=== PATIENT | female | born 1965 | race African-American/Black ===

== ENCOUNTER 2018-05-19 15:08 | Emergency (ER) | payer MEDICARE, MEDICAID ==
[~2018-05-19] VITALS: Ht 162.6 cm; Wt 71.0 kg
[~2018-05-19 15:08] MED LIST: HYDR-4135 PO; LISI40TA4 MT; MELO-106 MT; [UNRECOGNIZED DRUG - OTHER]
[2018-05-19] MEDS ORDERED: KETOROLAC 60MG/2ML VIAL IM STA (16:49)
[2018-05-19] MEDS ORDERED: ASPIRIN 81MG TABLET PO ONE (17:00)
[2018-05-19 18:01] LABS: BASOPHILS % 0.3 % (0.0-2.0); EOSINOPHILS % 1.7 % (0.0-5.0); HEMATOCRIT. 42.9 % (36.0-48.0); HEMOGLOBIN. 14.3 g/dL (12.0-16.0); MEAN CORPUSCULAR HEMOGLOBIN 27.9 pg (28.0-32.0); MEAN CORPUSCULAR VOLUME 83.6 fL (81.0-99.0); MEAN PLATELET VOLUME 8.5 fl (7.4-10.4); MONOCYTES % 4.4 % (2.0-8.0); NEUTROPHILS % 75.6 % (40.0-76.0); PLATELET 271 x1000/uL (130-400); RED BLOOD CELL COUNT 5.13 mill/uL (4.2-5.4); RED CELL DISTRIBUTION WIDTH 18.8 % (11.6-14.6)
[2018-05-19 18:08] LABS: CHLORIDE 106 mEq/L (98-107)
[2018-05-19 18:51] VITALS: BP 135/86
== END 2018-05-19 19:34 | disposition home or self-care (01) ==
LOC: ER 15:08 → CANBEDREQ 20:37
DX: R07.89 Other chest pain (principal); F12.10 Cannabis abuse, uncomplicated; I11.0 Hypertensive heart disease with heart failure; I50.9 Heart failure, unspecified; J45.909 Unspecified asthma, uncomplicated; H40.9 Unspecified glaucoma; Z88.6 Allergy status to analgesic agent; Z91.013 Allergy to seafood
CPT/HCPCS: 36415; 71045; 80053; 83880; 84484; 85025; 93005; 96372; 99284; J1885

== ENCOUNTER 2020-06-20 20:36 | Inpatient (IN) | payer MEDICARE, MEDICAID ==
[~2020-06-20] VITALS: Ht 162.6 cm; Wt 121.4 kg
[~2020-06-20 20:36] MED LIST changes: +LISI40TA13 MT; -LISI40TA4 MT
[2020-06-20] MEDS ORDERED: SODIUM CHLORIDE 0.9% 1,000 ML IV ONE (21:15)
[2020-06-20] MEDS ORDERED: MORPHINE SULFATE 4 MG/ML CPJ (NOT FOR IM USE) IV ONE (21:30)
[2020-06-20 21:44] LABS: BASOPHILS % 0.8 % (0.0-2.0); EOSINOPHILS % 0.8 % (0.0-5.0); HEMATOCRIT. 44.8 % (36.0-48.0); HEMOGLOBIN. 15.2 g/dL (12.0-16.0); LYMPHOCYTES % 21.2 % (20.0-50.0); MEAN CORPUSCULAR HEMOGLOBIN 29.5 pg (28.0-32.0); MEAN CORPUSCULAR VOLUME 87.1 fL (81.0-99.0); MEAN PLATELET VOLUME 9.3 fl (7.4-10.4); MONOCYTES % 5.4 % (2.0-8.0); NEUTROPHILS % 71.8 % (40.0-76.0); PLATELET 227 x1000/uL (130-400); RED BLOOD CELL COUNT 5.15 mill/uL (4.2-5.4); RED CELL DISTRIBUTION WIDTH 14.5 % (11.6-14.6)
[2020-06-20 21:45] LABS: CLARITY URINE CLEAR (CLEAR); COLOR URINE YELLOW (YELLOW); KETONES URINE NEGATIVE (NEGATIVE); LEUKOCYTE ESTERASE URINE TRACE (NEGATIVE); NITRITE URINE NEGATIVE (NEGATIVE); OCCULT BLOOD URINE NEGATIVE (NEGATIVE); PH URINE 7.5 (4.5-8.0); PROTEIN URINE NEGATIVE (NEGATIVE); SPECIFIC GRAVITY URINE 1.015 (1.005-1.030); UROBILINOGEN URINE 0.2 E.U./dL (0.2-1.0)
[2020-06-20 21:49] LABS: CHLORIDE 96 mEq/L (98-107)
[2020-06-20] MEDS ORDERED: POTASSIUM CHLORIDE 20MEQ TABLET SR PO ONE (22:45)
[2020-06-20] MEDS ORDERED: LORAZEPAM 2MG/ML CPJ IV ONE (22:45)
[2020-06-20] MEDS ORDERED: KCL 20MEQ/100ML PREMIX 100 ML IV ONE (22:45)
[2020-06-20] MEDS ORDERED: HYDRALAZINE 20MG/ML VIAL IV ONE (23:45)
[2020-06-21] MEDS ORDERED: HYDROCODONE/ACETAMINOPHEN 5/325MG TABLET PO PRN (03:00)
[2020-06-21] MEDS ORDERED: CLONIDINE 0.2MG TABLET PO PRN (03:00)
[2020-06-21] MEDS: ACETAMINOPHEN 325MG TABLET PO PRN ×3 (04:30→13:27)
[2020-06-21] MEDS ORDERED: MAGNESIUM/ALUMINUM HYDROXIDE/SIMETHICONE 30ML UDC PO PRN (08:15)
[2020-06-21] MEDS ORDERED: ONDANSETRON HCL 4MG/2ML INJ IV PRN (08:15)
[2020-06-21] MEDS ORDERED: ACETAMINOPHEN 325MG TABLET PO PRN (08:15)
[2020-06-21] MEDS ORDERED: DOCUSATE SODIUM 100MG CAPSULE PO PRN (08:15)
[2020-06-21] MEDS ORDERED: IPRATROPIUM/ALBUTEROL 0.5-3(2.5)MG/3ML NEB HHN PRN (08:15)
[2020-06-21] MEDS ORDERED: MORPHINE SULFATE 2 MG/ML CPJ (NOT FOR IM USE) IV PRN (08:15)
[2020-06-21] MEDS ORDERED: GUAIFENESIN 200MG/10ML SUGAR FREE UDC PO PRN (08:15)
[2020-06-21] MEDS ORDERED: HYDRALAZINE 20MG/ML VIAL IV PRN (08:15)
[2020-06-21 09:24] LABS: CHLORIDE 99 mEq/L (98-107)
[2020-06-21] MEDS: ENOXAPARIN 40MG/0.4ML SYR SUBCUT SCH (09:34)
[2020-06-21] MEDS ORDERED: POTASSIUM CHLORIDE INJ 40 MEQ in DEXT 5% WATER 250 ML IV NR (12:00)
[2020-06-21 13:00] LABS: T4 FREE 1.45 ng/dL (0.76-1.46)
[2020-06-21 13:30] LABS: CREATINE KINASE 214 IU/L (26-192)
[2020-06-21 13:31] LABS: CREATINE KINASE MB FRACTION 1.3 ng/mL (0.5-3.6)
[2020-06-21] MEDS: SODIUM CHLORIDE 0.9% INJ 3ML FLUSH IVF SCH ×2 (14:32→22:00)
[2020-06-21 14:55] VITALS: BP 137/77
[2020-06-21 16:00] VITALS: BP 168/75
[2020-06-21] MEDS: LORAZEPAM 2MG/ML CPJ IV PRN (18:40)
[2020-06-21] MEDS: DIPHENHYDRAMINE 50MG/ML VIAL IV PRN ×2 (18:40→23:49)
[2020-06-21 20:00] VITALS: BP 152/80
[2020-06-21] MEDS ORDERED: PNEUMOCOCCAL 23-VAL P-SAC VAC 0.5 ML IM ONE (22:00)
[2020-06-21] MEDS ORDERED: TC1U15 TP (23:44)
[2020-06-21] MEDS ORDERED: QUET200T MT (23:44)
[2020-06-21] MEDS ORDERED: BRIM.2 EACHEYE (23:44)
[2020-06-21] MEDS ORDERED: PRED5DRO22 EACHEYE (23:44)
[2020-06-22] VITALS: BP 144/69
[2020-06-22 00:48] LABS: CREATINE KINASE 204 IU/L (26-192)
[2020-06-22 04:00] VITALS: BP 159/66
[2020-06-22] MEDS ORDERED: *PATIENT'S OWN MEDICATION STORAGE XX SCH (04:15)
[2020-06-22] MEDS: SODIUM CHLORIDE 0.9% INJ 3ML FLUSH IVF SCH ×2 (06:12→16:57)
[2020-06-22 06:29] LABS: CHLORIDE 101 mEq/L (98-107)
[2020-06-22 06:36] LABS: BASOPHILS % 0.5 % (0.0-2.0); HEMATOCRIT. 41.7 % (36.0-48.0); HEMOGLOBIN. 14.4 g/dL (12.0-16.0); MEAN CORPUSCULAR HEMOGLOBIN 30.5 pg (28.0-32.0); MEAN CORPUSCULAR VOLUME 88.4 fL (81.0-99.0); MEAN PLATELET VOLUME 9.2 fl (7.4-10.4); MONOCYTES % 6.8 % (2.0-8.0); NEUTROPHILS % 66.7 % (40.0-76.0); PLATELET 222 x1000/uL (130-400); RED BLOOD CELL COUNT 4.72 mill/uL (4.2-5.4); RED CELL DISTRIBUTION WIDTH 14.4 % (11.6-14.6)
[2020-06-22 08:00] VITALS: BP 148/84
[2020-06-22] MEDS: ENOXAPARIN 40MG/0.4ML SYR SUBCUT SCH (08:36)
[2020-06-22] MEDS: LORAZEPAM 2MG/ML CPJ IV PRN ×2 (08:48→16:58)
[2020-06-22] MEDS ORDERED: HYDRALAZINE HCL 50MG TABLET PO SCH (10:00)
[2020-06-22] MEDS ORDERED: POTASSIUM CHLORIDE INJ 40 MEQ in DEXT 5% WATER 250 ML IV SCH (11:00)
[2020-06-22 12:00] VITALS: BP 155/75
[2020-06-22 15:59] LABS: HEPATITIS B SURFACE ANTIGEN NEGATIVE
[2020-06-22 16:00] VITALS: BP 147/68
[2020-06-22] MEDS ORDERED: PREDNISOLONE ACETATE 1% OPHTH DROPS 5ML EACHEYE SCH ×2 (16:00→17:30)
[2020-06-22 16:27] LABS: HEPATITIS A AB IGM NEGATIVE (NEGATIVE)
[2020-06-22 17:15] VITALS: BP 147/68
[2020-06-22] MEDS ORDERED: ENOXAPARIN 30MG/0.3ML SYR SUBCUT SCH (21:00)
== END 2020-06-22 18:16 | disposition home or self-care (01) | DRG 690 ==
LOC: ER 20:36 → 8WST 06-21 00:08 → ENRESERV 06-21 12:11
PROVIDERS: ADMIT Internal Medicine; ATTEND Internal Medicine
DX: N30.90 Cystitis, unspecified without hematuria (principal); Z68.42 Body mass index [BMI] 45.0-49.9, adult; E87.1 Hypo-osmolality and hyponatremia; E87.6 Hypokalemia; E86.0 Dehydration; D72.829 Elevated white blood cell count, unspecified; E66.9 Obesity, unspecified; J45.909 Unspecified asthma, uncomplicated; K76.0 Fatty (change of) liver, not elsewhere classified; Z20.822 Contact with and (suspected) exposure to COVID-19; N85.4 Malposition of uterus; R74.01 Elevation of levels of liver transaminase levels; E87.5 Hyperkalemia; I10 Essential (primary) hypertension; Z88.8 Allergy status to other drugs, medicaments and biological substances; Z91.013 Allergy to seafood; Z79.899 Other long term (current) drug therapy
CPT/HCPCS: 36415; 71045; 74176; 80048; 80053; 80061; 81003; 82550; 82553; 83036; 83735; 83880; 84439; 84443; 84484; 85025; 85379; 86705; 86709; 86803; 87340; 87426; 93005; 93306; 93970; 96374; 99285; J0360; J1200; J1650; J2060; J2270; J2405; J3480; J7030; J7060

== ENCOUNTER → 2023-08-24 | Day surgery (SDC) | payer MEDICARE, MEDICAID ==
[~2023-08-24] VITALS: Ht 162.6 cm; Wt 109.3 kg
[~2023-08-24] MED LIST changes: +ATEN50TA PO; +BRIM5DRO6 RIGHTEYE; +DIPH50CA38 PO; +DUPI300S SQ; +ERGO1250 PO; +FENTANYL CITRATE/PF 50MCG/ML 2ML VIAL ONE; -HYDR-4135 PO; +HYDR100T26 PO; +HYDR25TA PO; +HYDROMORPHONE HCL/PF 2MG/ML CPJ IV PRN; +LABETALOL 5MG/ML SYR 20 MG/4 ML SYRINGE IV PRN; -LISI40TA13 MT; -MELO-106 MT; +MEPERIDINE HCL/PF 25MG/ML CPJ IV PRN; +METF-414 PO; +ONDANSETRON HCL 4MG/2ML INJ IV PRN; +P20 PO; +PRED5DRO22 EACHEYE; +PROPOFOL 200MG/20ML VIAL IV ONE; +QUET300T2 PO; +SEMA2PEN IJ; +SERT50TA PO; +SODIUM CHLORIDE 0.9% 1,000 ML IV SCH; +TIZA-204 PO; -[UNRECOGNIZED DRUG - OTHER]
[2023-08-24 13:18] VITALS: BP 152/70; PULSE 69; RESP 20
[2023-08-24] MEDS: MAGNESIUM/ALUMINUM HYDROXIDE/SIMETHICONE 30ML UDC PO NR (13:18)
[2023-08-24] MEDS: MORPHINE SULFATE 2 MG/ML CPJ (NOT FOR IM USE) IV NR (13:18)
== END | disposition home or self-care (01) ==
LOC: OR 08:45
PROVIDERS: ATTEND Internal Medicine Gastroenterology
DX: R19.7 Diarrhea, unspecified (principal); K21.9 Gastro-esophageal reflux disease without esophagitis; R10.13 Epigastric pain; K29.80 Duodenitis without bleeding; K29.50 Unspecified chronic gastritis without bleeding; D64.9 Anemia, unspecified; K92.1 Melena; I11.0 Hypertensive heart disease with heart failure; I50.9 Heart failure, unspecified; E11.9 Type 2 diabetes mellitus without complications; J45.909 Unspecified asthma, uncomplicated; F32.9 Major depressive disorder, single episode, unspecified; Z79.84 Long term (current) use of oral hypoglycemic drugs; Z79.899 Other long term (current) drug therapy; Z98.890 Other specified postprocedural states; Z91.013 Allergy to seafood; Z88.8 Allergy status to other drugs, medicaments and biological substances; Z82.49 Family history of ischemic heart disease and other diseases of the circulatory system
CPT/HCPCS: 82962; 88305; 93005; 45380; 43239; J3010; J2704; J2270; Z7610 ×3

== ENCOUNTER 2023-10-17 14:06 | Emergency (ER) | payer MEDICARE, MEDICAID ==
[~2023-10-17] VITALS: Ht 172.7 cm; Wt 82.0 kg
[~2023-10-17 14:06] MED LIST changes: -FENTANYL CITRATE/PF 50MCG/ML 2ML VIAL ONE; -HYDROMORPHONE HCL/PF 2MG/ML CPJ IV PRN; -LABETALOL 5MG/ML SYR 20 MG/4 ML SYRINGE IV PRN; -MEPERIDINE HCL/PF 25MG/ML CPJ IV PRN; -ONDANSETRON HCL 4MG/2ML INJ IV PRN; -PROPOFOL 200MG/20ML VIAL IV ONE; -SODIUM CHLORIDE 0.9% 1,000 ML IV SCH
[2023-10-17 14:14] VITALS: BP 143/79; PULSE 96; RESP 25; TEMP 98.3; O2SAT 97
[2023-10-17] MEDS: HYDROCODONE/ACETAMINOPHEN 5/325MG TABLET PO ONE (15:33)
[2023-10-17] MEDS ORDERED: METH-653 MT (15:35)
[2023-10-17] MEDS: METHOCARBAMOL 500MG TABLET PO ONE (15:35)
== END 2023-10-17 16:09 | disposition home or self-care (01) ==
LOC: ER 14:53
DX: S13.4XXA Sprain of ligaments of cervical spine, initial encounter (principal); M48.02 Spinal stenosis, cervical region; M48.32 Traumatic spondylopathy, cervical region; J45.909 Unspecified asthma, uncomplicated; E11.9 Type 2 diabetes mellitus without complications; E78.00 Pure hypercholesterolemia, unspecified; I10 Essential (primary) hypertension; F12.90 Cannabis use, unspecified, uncomplicated; Z88.6 Allergy status to analgesic agent; Z91.013 Allergy to seafood; V89.2XXA Person injured in unspecified motor-vehicle accident, traffic, initial encounter; Y93.89 Activity, other specified; Y92.89 Other specified places as the place of occurrence of the external cause; Y99.8 Other external cause status
CPT/HCPCS: 71045; 99284